=== PATIENT | female | born 1980 | race Caucasian/White ===

== ENCOUNTER 2016-10-17 15:13 | Emergency (ER) | payer OTHER ==
--- NOTE | ~2016-10-17 | ER ---
PATIENT'S NAME: LYNN ROBERTS V [facility] AGE: 36 Y [address] ROOM: [place] [id number] LOCATION: ED ADMIT DATE: 10/17/2016 ER/Outpatient Report DISCHARGE DATE: 10/17/2016 FAMILY PHYSICIAN: PHYSICIAN, NO ATTENDING PHYSICIAN: Moisés Arango Time of Arrival: 1525 hours. Time of Exam: 1540 hours. CHIEF COMPLAINT: Back pain. HISTORY OF PRESENT ILLNESS: The patient states approximately 3 hours prior to arrival she was bending over her desk going through her purse that was in the lower drawer and she developed left-sided back pain. She says it spasm-type pain, feels like she is getting cattle prod every so often. States she has had problems with kidney stones in the past. This pain seems different than that. Has not been nauseated and has not had any vomiting. ALLERGIES: ON THE CHART AND REVIEWED BY ME. CURRENT MEDICATIONS: On her chart and were reviewed by me. PAST MEDICAL HISTORY: Includes kidney stones. PAST SURGERIES: Include lithotripsy, , tubal ligation. Last menstrual period started 10/15/2016. 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 Denies use of tobacco, drugs, or alcohol. REVIEW OF SYSTEMS: All negative other than those mentioned in the HPI. PHYSICAL EXAMINATION: VITAL SIGNS: She weighed 86.1 kg. Blood pressure is 134/62, pulse is 74, respirations 16, temperature of 98.2, and O2 saturation was 99% on room air. GENERAL: She is awake, alert, and oriented x4. SKIN: [place], warm, and dry. PATIENT'S NAME: LYNN ROBERTS V [facility] AGE: 36 Y [address] ROOM: [place], [place] [address] LOCATION: ED ADMIT DATE: 10/17/2016 ER/Outpatient Report DISCHARGE DATE: 10/17/2016 FAMILY PHYSICIAN: PHYSICIAN, ALEXANDER ATTENDING PHYSICIAN: Moisés Arango LUNGS: Respirations are even and nonlabored. Lung sounds were clear throughout. HEART: Regular rate and rhythm. ABDOMEN: Soft and nondistended. Bowel sounds are present. She is tender to palpate in the left flank area. EMERGENCY DEPARTMENT COURSE: She was given Toradol 60 mg IM. A clean-catch UA was obtained. Lab work was drawn. CBC is within normal limits. Chem panel within normal limits. Urine does show 100 leukocytes, 25 of blood, 10-20 white blood cells, and many bacteria with white blood cell clumps. CT stone protocol was completed and radiologist shows no obstructing renal calculi. She does have a 2-mm upper pole of the left kidney stone, but remainder of the CT is normal. The patient states the Toradol was helping some with the pain until she got back from CT and she had spasms again. She was given Valium 2 mg p.o. IMPRESSION: 1. Urinary tract infection. 2. Left flank pain. PLAN: Home. Rest. Ice or heat to the area. Tylenol or ibuprofen as needed. Prescription was written for Macrobid b.i.d. She is to follow up with her primary provider if symptoms persist or worsen. She verbalized understanding. TYRONE KIMBALL APRN FOR MD ANA PANDA/helen /[id number] d: 10/17/16 2336 t: 10/24/16 0647, OUTPATIENT REPORT
[2016-10-17 16:06] LABS: BASOPHIL # 0.1 K/uL (0.0-0.2); BASOPHIL % 0.7 %; EOSINOPHIL # 0.1 K/uL (0.0-0.5); EOSINOPHIL % 0.8 %; HEMATOCRIT 42.2 % (33.0-46.0); HEMOGLOBIN 13.7 g/dL (11.0-15.0); IMMATURE GRANULOCYTE % 0.1 %; LYMPHOCYTE # 1.8 K/uL (0.8-4.0); LYMPHOCYTE % 24.8 %; MCH 29.7 pg (27.0-34.0); MCHC 32.5 gm/dL (32.0-36.5); MCV 91.5 fl (83.0-98.0); MONOCYTE # 0.3 K/uL (0.0-1.0); MONOCYTE % 4.4 %; MPV 10.2 fl (9.4-12.4); NEUTROPHIL % 69.2 %; NRBC % 0 /100WBC (0-0.00); PLATELET COUNT 150 K/uL (150-450); RBC 4.61 M/uL (3.50-5.50); RDW-CV 12.1 % (11.9-14.6); WBC 7.3 K/uL (4.0-11.0)
[2016-10-17 16:07] LABS: BILIRUBIN URINE NEGATIVE (NEGATIVE); BLOOD URINE 25 /UL (NEGATIVE); COLOR URINE YELLOW (YELLOW); GLUCOSE URINE NEGATIVE (NEGATIVE); KETONE URINE NEGATIVE (NEGATIVE); LEUKOCYTES URINE 100 /UL (NEGATIVE); NITRITE URINE NEGATIVE (NEGATIVE); PROTEIN URINE NEGATIVE (NEGATIVE); TURBIDITY URINE CLEAR (CLEAR); UROBILINOGEN URINE NORMAL (NORMAL)
[2016-10-17 16:15] LABS: BACTERIA URINE MANY (NEGATIVE); RENAL EPITH URINE 0-2 #/HPF (NEGATIVE); WBC CLUMPS URINE FEW (NEGATIVE)
[2016-10-17 16:24] LABS: ALBUMIN 4.1 gm/dL (3.5-5.0); ALK PHOS 44 IU/L (33-138); ALT 16 IU/L (12-78); ANION GAP 11.7 (10.0-19.0); AST 11 IU/L (10-40); BLOOD UREA NITROGEN 9 mg/dL (6-24); CALCIUM 8.6 mg/dL (8.5-10.5); CHLORIDE 105 mMol/L (96-110); CO2 28 mMol/L (22-32); CREATININE 0.9 mg/dL (0.5-1.1); ESTIMATED GFR (MDRD EQUATION) > 60; POTASSIUM 3.7 mMol/L (3.7-5.1); SODIUM 141 mMol/L (135-145); TOTAL BILIRUBIN 0.4 mg/dL (0.0-1.5)
== END 2016-10-17 16:47 | disposition disaster alternative care site (69) ==
LOC: GMED 15:13
PROVIDERS: Nurse Practitioner Family
DX: N39.0 Urinary tract infection, site not specified (principal); Z98.51 Tubal ligation status; Z98.890 Other specified postprocedural states
CPT/HCPCS: J1885